=== PATIENT | male | born 1955 | race Caucasian/White ===

== ENCOUNTER 2017-11-18 08:27 | Day surgery (SDC) | payer BC ==
[2017-11-18 09:30] VITALS: BMI 26.1
[2017-11-18] MEDS ORDERED: PROPOFOL 20 ML ONE ×3 (10:07)
[2017-11-18 11:07] VITALS: TEMP 98.1
[2017-11-18 12:05] VITALS: BP 121/80; PULSE 63
--- NOTE | 2017-11-19 18:33 | PATH ---
Surgical Pathology Report Patient Name: YON MEJÍA [facility]. Rec. #: [id number] /Age/Gender: 1955 (Age: 62) / M Account: [id number] Location: ASU-ENDOSCOPY Taken: 11/18/2017 Received: 11/18/2017 Reported: 11/19/2017 Physicians: Julian Tuttle D.O. Specimen(s) Received BX CECAL POLYP Clinical History Benign neoplasm of colon, abnormal liver function test Postoperative diagnosis: Colon polyp Final Diagnosis CECUM, POLYP, POLYPECTOMY: TUBULAR ADENOMA WITH CAUTERY ARTIFACT. Electronically Signed Maegan Jules M.D. Gross Description Received in formalin, labeled "polyp from cecum" are 4 alvarado, irregular portions of soft tissue ranging from 0.1-0.5 cm. in greatest dimension. The specimens are submitted in toto in one cassette. /11/18/2017 saudi/11/18/2017
== END 2017-11-18 11:45 | disposition home or self-care (01) ==
LOC: JASU-ENDO 08:27
PROVIDERS: ATTEND Internal Medicine Gastroenterology
PROC: 0DBH8ZX Excision of Cecum, Via Natural or Artificial Opening Endoscopic, Diagnostic (ICD-10-PCS; principal; 2017-11-18 09:30)
DX: Z12.11 Encounter for screening for malignant neoplasm of colon (principal); Z86.010 Personal history of colon polyps; D12.0 Benign neoplasm of cecum
CPT/HCPCS: 88305-TC

== ENCOUNTER 2018-01-08 18:44 | Emergency (ER) | payer BC ==
[2018-01-08 18:53] VITALS: BP 139/81; PULSE 67; TEMP 99.1; BMI 29.0
--- NOTE | 2018-01-08 18:55 | PDOC ---
Rapid Medical Evaluation Chief Complaint: Back Pain Time Seen by Provider: 01/08/18 18:52 Medical Evaluation: Allergies Allergy/AdvReac Type Severity Reaction Status Date / Time No Known Allergies Allergy Verified 01/08/18 18:50 01/08/18 18:52 Pt presents for low back pain starting today. Pt states he lifted heavy boxes of water yesterday. Denies saddle anesthesia, weakness, bladder/bowel incontinence. Pt has hx of kidney stones Exam: Normal gait, No CVA tenderness, VSS Orders: Nothing. Pt to proceed to the ED for further evaluation Discharge Disposition - Diagnosis Back pain Qualifiers: Back pain location: low back pain - Referrals - Patient Instructions - Post Discharge Activity
--- NOTE | 2018-01-08 19:39 | PDOC ---
History of Present Illness - General Chief Complaint: Back Pain Stated Complaint: BACK PAIN Time Seen by Provider: 01/08/18 18:52 History Source: Patient Exam Limitations: No Limitations - History of Present Illness Initial Comments: CHIEF COMPLAINT: 62 y/o male c/o left sided low back pain since lifting something heavy yesterday. HISTORY OF PRESENT ILLNESS: The patient denies fall, trauma to back, midline back tenderness, urinary/bowel incontinence, leg pain, saddle anesthesia, numbness/tingling in feet. Vital signs on arrival are within normal limits. REVIEW OF SYSTEMS: GENERAL/CONSTITUTIONAL: No fever/chills. No weakness. No weight change. GENITOURINARY: No dysuria, frequency, or change in urination. No bowel/bladder incontinence. MUSCULOSKELETAL: No joint or muscle swelling or pain. No neck pain. +low back pain SKIN: No rash or easy bruising. NEUROLOGIC: No headache, vertigo, loss of consciousness, or loss of sensation. PHYSICAL EXAM: GENERAL: The patient is awake, alert, and fully oriented, in no acute distress. ABDOMEN: Soft, non-distended, non-tender even to deep palpation, no hepatomegaly or splenomegaly, no masses. BACK: No midline lumbar spine TTP or step offs. Full flexion and extension of lumbar spine. TTP with large knot of left lumbar paravertebral muscles. EXTREMITIES: Normal range of motion, no edema. NEUROLOGICAL: Normal speech, normal gait. CN II-XII grossly intact. No saddle anesthesia. SKIN: Warm, dry, normal turgor, no rashes or lesions noted. Past History - Past Medical History Allergies/Adverse Reactions: Allergies Allergy/AdvReac Type Severity Reaction Status Date / Time No Known Allergies Allergy Verified 01/08/18 18:50 Home Medications: Ambulatory Orders Metoprolol Tartrate [Lopressor -] 25 mg PO BID 10/01/13 Simvastatin [Zocor -] 40 mg PO HS 10/01/13 Cyclobenzaprine HCl [Flexeril 10 mg] 10 mg PO BID PRN #10 tablet MDD 2 01/08/18 Ibuprofen 600 mg PO TID #20 tablet 01/08/18 COPD: No HTN: Yes Hypercholesterolemia: Yes - Surgical History Orthopedic Surgery: Yes (left index sx) - Immunization History Immunization Up to Date: Yes - Suicide/Smoking/Psychosocial Hx Smoking History: Never smoked Have you smoked in the past 12 months: No Hx Alcohol Use: No Drug/Substance Use Hx: No Substance Use Type: Alcohol *Physical Exam - Vital Signs Last Vital Signs Temp Pulse Resp BP Pulse Ox 99.1 F 67 18 139/81 98 01/08/18 18:50 01/08/18 18:50 01/08/18 18:50 01/08/18 18:50 01/08/18 18:50 Medical Decision Making - Medical Decision Making A/P: 62 y/o male with low back strain. Will send rx for flexeril and ibuprofen. INstructed him flexeril may cause drowsiness. Suggested heating pad and massage. Gave work note for tomorrow. Suggested no heavy lifting. Instructed him to return to the ER with any worsening or concerning symptoms. The patient verbalizes understanding of all instructions, has no further questions and is awaiting discharge. *DC/Admit/Observation/Transfer Diagnosis at time of Disposition: Low back strain Back pain Qualifiers: Back pain location: low back pain Chronicity: acute Back pain laterality: left Sciatica presence: without sciatica Qualified Code(s): M54.5 - Low back pain - Discharge Dispostion Disposition: HOME Condition at time of disposition: Good - Prescriptions Prescriptions: Cyclobenzaprine HCl [Flexeril 10 mg] 10 mg PO BID PRN #10 tablet MDD 2 PRN Reason: Muscle Spasms Ibuprofen 600 mg PO TID #20 tablet - Referrals Referrals: Jacky Nolasco MD [Primary Care Provider] - Call tomorrow - Patient Instructions Printed Discharge Instructions: DI for Low Back Pain Additional Instructions: Discharge Instructions: -2 prescriptions have been sent to your pharmacy -Avoid heavy lifting -Apply heating pad to affected area -Massage affected area -Return to the ER with any worsening or concerning symptoms Instrucciones de descarga: -2 recetas penn sido enviadas a luna farmacia -Evitar levantar objetos pesados -Aplicar la almohadilla trmica al anand afectada -Masa afectada por el anand -Volver a la niko de urgencias con cualquier empeoramiento o sntomas Print Language: KINYARWANDA - Post Discharge Activity
== END 2018-01-08 19:44 | disposition home or self-care (01) ==
LOC: JERFT 18:44
DX: S39.012A Strain of muscle, fascia and tendon of lower back, initial encounter (principal); X50.0XXA Overexertion from strenuous movement or load, initial encounter; Y93.89 Activity, other specified; Y92.89 Other specified places as the place of occurrence of the external cause; Y99.8 Other external cause status; I10 Essential (primary) hypertension; E78.00 Pure hypercholesterolemia, unspecified
CPT/HCPCS: 99281-25

== ENCOUNTER 2019-07-06 12:51 | Emergency (ER) | payer BC ==
--- NOTE | 2019-07-06 13:04 | PDOC ---
Rapid Medical Evaluation Time Seen by Provider: 07/06/19 12:59 Medical Evaluation: Allergies Allergy/AdvReac Type Severity Reaction Status Date / Time No Known Allergies Allergy Verified 01/08/18 18:50 07/06/19 12:59 I have performed a brief in-person evaluation of this patient. The patient presents with a chief complaint of: woke up this morning feeling like he is favoring his left side. Started at about 6am. He is having trouble closing his left eye. No speech difficulties, no ataxia, no numbness or tingling. H/o HTN, HLD Pertinent physical exam findings: left sided facial droop, unable to close left eye I have ordered the following: code griffin, labs ordered, ct ordered The patient will proceed to the ED for further evaluation 07/06/19 13:02 Discharge Disposition - Diagnosis Facial droop - Referrals - Patient Instructions - Post Discharge Activity
[2019-07-06 13:05] VITALS: TEMP 98.2
[2019-07-06] MEDS ORDERED: SODIUM CHLORIDE 1,000 ML IV SCH (13:15)
--- NOTE | 2019-07-06 14:06 | PDOC ---
History of Present Illness - General Chief Complaint: CVA/TIA Stated Complaint: FACE NUMBNESS Time Seen by Provider: 07/06/19 12:59 History Source: Patient Exam Limitations: No Limitations - History of Present Illness Initial Comments: 07/06/19 14:03 Trevon Maddox is a 63M with PMH HTN and HLD presents with new onset facial weakness. Last known normal at 12:30AM, went to bed then and woke up at 6:30AM and noticed left-sided weakness of his left eyelid and left mouth corner. Presented to ED for CVA eval. Denies recent illness, fever, chills, N/V, chest pain, SOB, abd pain, dizziness. No history of SC or CVA in the past, PMH HTN and HLD on medications. Able to stand and walk without issues. Past History - Past Medical History Allergies/Adverse Reactions: Allergies Allergy/AdvReac Type Severity Reaction Status Date / Time No Known Allergies Allergy Verified 07/06/19 13:05 Home Medications: Ambulatory Orders Metoprolol Tartrate [Lopressor -] 25 mg PO BID 10/01/13 Simvastatin [Zocor -] 40 mg PO HS 10/01/13 Cyclobenzaprine HCl [Flexeril 10 mg] 10 mg PO BID PRN #10 tablet MDD 2 01/08/18 Ibuprofen 600 mg PO TID #20 tablet 01/08/18 Eye Patch 1 each MC DAILY #1 each 07/06/19 Valacyclovir HCl [Valtrex -] 1,000 mg PO TID 7 Days #21 tablet 07/06/19 predniSONE [Deltasone -] 60 mg PO DAILY 7 Days #21 tablet 07/06/19 COPD: No HTN: Yes Hypercholesterolemia: Yes - Surgical History Orthopedic Surgery: Yes (left index sx) - Immunization History Immunization Up to Date: Yes - Psycho Social/Smoking Cessation Hx Smoking History: Never smoked Have you smoked in the past 12 months: No Information on smoking cessation initiated: No Hx Alcohol Use: No Drug/Substance Use Hx: No Substance Use Type: Alcohol Review of Systems - Review of Systems Able to Perform ROS?: Yes Constitutional: No: Fever HEENTM: No: Blurred Vision, Double Vision, Hearing Loss, Throat Swelling, Difficulty Swallowing Respiratory: No: Cough, Shortness of Breath, SOB with Exertion, SOB at Rest Cardiac (ROS): No: Chest Pain, Edema, Irregular Heart Rate, Lightheadedness, Palpitations ABD/GI: No: Constipated, Diarrhea, Nausea, Poor Appetite, Poor Fluid Intake, Vomiting : No: Burning, Dysuria, Discharge, Frequency, Flank Pain, Hematuria, Incontinence Musculoskeletal: No: Symptoms Reported Integumentary: No: Symptoms Reported Neurological: Yes: Weakness (facial weakness). No: Headache, Numbness, Paresthesia, Unsteady Gait, Dizziness Endocrine: No: Symptoms Reported Hematologic/Lymphatic: No: Symptoms Reported All Other Systems: Reviewed and Negative *Physical Exam - Vital Signs Last Vital Signs Temp Pulse Resp BP Pulse Ox 98.2 F 75 18 174/94 H 100 07/06/19 13:03 07/06/19 13:03 07/06/19 13:03 07/06/19 13:03 07/06/19 13:03 - Physical Exam General Appearance: Yes: Nourished, Appropriately Dressed. No: Apparent Distress HEENT: positive: EOMI, MARYAM, Normal Voice, Pharynx Normal, Hearing Grossly Normal. negative: Normal ENT Inspection, Symmetrical, Photophobia, Scleral Icterus (R), Scleral Icterus (L), Pharyngeal Erythema, Tonsillar Exudate, Tonsillar Erythema Neck: positive: Trachea midline, Normal Thyroid, Supple. negative: Tender, Decreased range of motion, Lymphadenopathy (R), Lymphadenopathy (L), Tender lateral, Tender midline Respiratory/Chest: positive: Lungs Clear, Normal Breath Sounds. negative: Chest Tender, Respiratory Distress, Accessory Muscle Use, Crackles, Rales, Rhonchi, Stridor, Wheezing Cardiovascular: positive: Regular Rhythm, Regular Rate. negative: Murmur Gastrointestinal/Abdominal: positive: Normal Bowel Sounds, Flat, Soft. negative: Tender, Organomegaly, Protuberent, Guarding, Rebound, Hernia Musculoskeletal: positive: Normal Inspection. negative: CVA Tenderness, Decre ased Range of Motion, Vertebral Tenderness Extremity: positive: Normal Capillary Refill, Normal Inspection, Normal Range of Motion, Pelvis Stable, Other (no sensory deficits to arms/legs comapred L/R, no weakness or drift to arms/legs). negative: Tender, Pedal Edema, Swelling, Calf Tenderness Integumentary: positive: Normal Color, Dry, Warm Neurologic: positive: Fully Oriented, Alert, Normal Mood/Affect, Normal Response, Motor Strength 5/5, Finger to Nose (WNL), Other (A/O to self/place/time/month/birthday/age, no aphasia noted, no apraxia, speaking full sentences spontaneouly without pauses, normal thought content, no confusion). negative: vice president of engineering II-XII NML intact (Left face CN7 weakness decreased left eyelid strength and flattened left nasolabial fold angle but no sensory deficits compared to R side, remaining CN exam normal), Sensory Deficit NIH Stroke Scale - Initial Evaluation Level of consciousness: Alert Ask patient the month and their age: Answers both correctly Ask patient to open & close eyes; make fist and let go: Obeys both correctly Best gaze (horizontal eye movement): Normal Visual field testing: No visual field loss Facial paresis (Show teeth/raise eyebrows/close eyes tight): Minor paralysis (flattened nasolabial fold, asymmetry on smiling) Motor Function: Left Arm: Normal Motor Function: Right Arm: Normal (extends arm 90 (or 45) degrees for 10 seconds without drift Motor Function: Left Leg: Normal (extends leg 30 degrees for 5 seconds without drift) Motor Function: Right Leg: Normal (extends leg 30 degrees for 5 seconds without drift) Limb Ataxia: No ataxia Sensory(Use pinprick test arms,legs,trunk,face/side to side): Normal Best language (Describe picture, name items, read sentences): No Aphasia Dysarthria (read several words): Normal articulation Extinction and Inattention: No abnormality - Total Score NIH Stroke Scale Score: 1 tPA Exclusion Checklist 0-3hr - Thrombolytic Therapy Candidate Is the patient eligible for Thrombolytic Therapy?: No - Ineligibility reason(s) Reasons No tPA given: Outside of window - delayed arrival Critical Care Time/[facility] Note - Medical Decision Making Note: 07/06/19 14:24 Patient presents with left-sided facial weakness with decreased CN7 ability to close left eyelid, decreased forehead wrinkling to left forehead, left nasolabial fold flattening without any arm or leg symptoms, aphasia, cognitive deficits, numbness. Considering left-sided CVA vs. early onset Childers's palsy. CT scan shows no obvious lesion or ICH. CVA labs drawn. ECG shows NSR with HR 66, QRS 74, Qtc 414 Dr. Phillips consulted, recommends MRI DWI by rapid CVA protocol. 07/06/19 15:11 Labs notable for: - CBC WNL - CMP WNL - Tri/Chol/LDL elevated consistent with hyperlipidemia MRI checklist completed for patient, no risk factors or metal identified, pending MRI at this time. 07/06/19 16:04 MRI shows no evidence of infarct. Called Dr. Phillips, presumptive Childers's Palsy, safe for discharge home with outpatient neurology f/u, would like valacyclovir/prednisone outpatient with eye patch. Stable for discharge home at this time. Discharge - Discharge Information Problems reviewed: Yes Clinical Impression/Diagnosis: Facial droop, Childers's palsy Condition: Good Disposition: HOME - Admission No - Additional Discharge Information Prescriptions: predniSONE [Deltasone -] 60 mg PO DAILY 7 Days #21 tablet Eye Patch 1 each MC DAILY #1 each Valacyclovir HCl [Valtrex -] 1,000 mg PO TID 7 Days #21 tablet - Follow up/Referral Referrals: oDnte Phillips MD [Staff Physician] - - Patient Discharge Instructions Patient Printed Discharge Instructions: DI for Childers's Palsy Additional Instructions: Александрy fuiste evaluado por debilidad en tu shiv. Hemos recibido sadie tomografa computarizada y sadie resonancia magntica de luna breana y no hay accidente cerebrovascular. Es probable que edwige sntomas estn causados ??por sadie infeccin viral llamada Parlisis de Childers que se trata con esteroides y medicamentos antivirus, tmelos roby la prxima semana y consulte a un neurlogo en los prximos 3 astudillo; Se penn dado varias referencias. [place] los medicamentos y use el parche en el luz que le hemos dado. Si experimenta un empeoramiento de la debilidad facial, no puede usar los brazos o las piernas, tiene cambios en la visin o dolor de breana, no puede hablar o tiene otros sntomas nuevos o preocupantes, regrese a la niko de emergencias. Today you were evaluated for weakness in your face. We have gotten a CT scan and MRI of your head and there is no stroke. Your symptoms are likely being caused by a virus infection called Childers's Palsy which is treated with steroids and anti-virus medicines, please take them for the next week and see a neurologist in the next 3 days; several referrals have been given. Please take the medicines and wear the eye patch over your left eye at all times until you see a neurologist. If you experience worsening facial weakness, become unable to use your arms or legs, have vision changes or headache, become unable to speak, or have any other new or concerning symptoms, please return to the emergency room. Print Language: BULGARIAN - Post Discharge Activity Work/Back to School Note: Back to Work
[2019-07-06 14:08] LABS: INR 0.94 (0.83-1.09); PROTHROMBIN TIME (PATIENT) 11.1 SEC (9.7-13.0)
[2019-07-06 14:11] LABS: ACTIVATED PTT 23.5 SECONDS (25.2-36.5)
[2019-07-06 14:34] LABS: CHOLESTEROL 221 mg/dL (50-200); HDL CHOLESTEROL 53 mg/dL (40-60); LDL CHOLESTEROL (ONLY SJRH) 142 mg/dL (5-100); TRIGLYCERIDES 200 mg/dL (0-150)
[2019-07-06 14:47] LABS: ALK PHOS 90 U/L (45-117); ANION GAP 6 MMOL/L (8-16); BILIRUBIN,TOTAL 0.5 mg/dL (0.2-1); BLOOD UREA NITROGEN 12.2 mg/dL (7-18); CALCIUM 8.7 mg/dL (8.5-10.1); CHLORIDE 101 mmol/L (98-107); CO2 30 mmol/L (21-32); CREATININE 0.9 mg/dL (0.55-1.3); GLUCOSE,RANDOM 88 mg/dL (74-106); POTASSIUM 3.9 mmol/L (3.5-5.1); SGOT/AST 23 U/L (15-37); SGPT/ALT 20 U/L (13-61); SODIUM 137 mmol/L (136-145); TOT PROT 8.1 g/dl (6.4-8.2)
[2019-07-06 14:49] LABS: BASO % 0.5 % (0-2.0); EOS % 0.9 % (0-4.5); HEMATOCRIT 42.8 % (35.4-49); HEMOGLOBIN 14.1 GM/dL (11.7-16.9); LYMPH % 30.4 % (8-40); MCH 28.2 pg (25.7-33.7); MCHC 32.9 g/dl (32.0-35.9); MEAN CELL VOLUME 85.9 fl (80-96); MEAN PLT VOLUME 8.7 fl (7.5-11.1); NEUT % 57.2 % (42.8-82.8); PLATELET COUNT 150 K/MM3 (134-434); RBC 4.98 M/mm3 (4.00-5.60); RDW 14.7 % (11.9-15.9); WHITE BLOOD COUNT 5.8 K/mm3 (4.0-10.0)
--- NOTE | 2019-07-06 15:02 | PDOC ---
Documentation entered by Inna Nguyen SCRIBE, acting as scribe for Jose Cruz Mae MD. Jose Cruz Mae MD: This documentation has been prepared by the Adithya fernandez Nirvannie, SCRIBE, under my direction and personally reviewed by me in its entirety. I confirm that the documentation accurately reflects all work, treatment, procedures, and medical decision making performed by me. Attending Attestation - Resident Resident Name: Kang Douglas - ED Attending Attestation I have performed the following: I have examined & evaluated the patient, The case was reviewed & discussed with the resident, I agree w/resident's findings & plan - HPI HPI: 07/06/19 14:13 The patient is a 63 year old male, with a significant past medical history of hypertension and hyperlipidemia, who presents to the emergency department with left facial weakness. Patient woke up at 6:30am with left eyelid and left corner of the mouth weakness. He denies any recent chest pain or shortness of breath. no headace/vision change/speech change/focal arm or leg weakness/difficulty ambulating. No ear pain/ringing, no recent travel. Allergies: NKDA Last Known Well: 12:30AM - Physicial Exam PE: 07/06/19 15:00 Slightly elevated blood pressure, vitals otherwise normal Well-appearing gentleman seated comfortably in stretcher speaking fluent sentences Pupils equal round reactive to light, extraocular movements are intact Heart is regular, lungs are clear, abdomen benign There is some asymmetry with weakness of left forehead wrinkling, left eye closure, and left nasolabial fold/smile. 5 out of 5 upper and lower extremity strength, no pronator drift, gait stable - Medical Decision Making 07/06/19 15:01 63-year-old male last known well about 12 hours prior to arrival with symptom onset noted around 6:30 AM presents with left facial weakness inclusive of upper face which seems more consistent with Childers's palsy than with central etiology. Given risk factors, will rule out TIA/CVA. No other focal findings on examination. Stroke protocol initiated CT head shows no acute infarction Discussed with neurology, will perform MRI to rule out CVA Reassess and disposition accordingly Heart Score/ECG Review #1 ECG reviewed & interpreted by me at: 13:18 General ECG Interpretation: Sinus Rhythm, Normal Rate (66), Normal Intervals (qtc 398), No acute ischemic changes
[2019-07-06 15:23] VITALS: BP 140/85; PULSE 66
--- NOTE | 2019-07-07 11:14 | EKG ---
Test Reason : Blood Pressure : / mmHG Vent. Rate : 066 BPM Atrial Rate : 066 BPM P-R Int : 152 ms QRS Dur : 084 ms QT Int : 380 ms P-R-T Axes : 045 -01 040 degrees QTc Int : 398 ms NORMAL SINUS RHYTHM NORMAL ECG WHEN COMPARED WITH ECG OF 01-OCT-2013 17:45, NO SIGNIFICANT CHANGE WAS FOUND Confirmed by MD ARMIN, MANDI ([id number]) on 07/07/2019 11:14:02 AM Referred By: Confirmed By:MANDI FUNEZ MD
== END 2019-07-06 16:15 | disposition home or self-care (01) ==
LOC: JER 12:51
DX: G51.0 Bell's palsy (principal); I10 Essential (primary) hypertension; E78.5 Hyperlipidemia, unspecified
CPT/HCPCS: 36415; 70450-TC; 70551-TC; 80053; 80061; 82550; 83721; 84484; 85025; 85610; 85730; 86850; 86900; 86901; 93005; 93010; 99285-25; J7030

== ENCOUNTER 2022-02-04 03:59 | Day surgery (SDC) | payer OTHER, BC ==
[2022-02-01 09:07] VITALS: BMI 28.3
[2022-02-04] MEDS ORDERED: BUPIVACAINE HCL/PF 0.25% (2.5MG/ML) 10 ML VIAL ONE (07:37)
[2022-02-04] MEDS ORDERED: BUPIVACAINE HCL/PF 0.5% (5MG/ML) 10 ML VIAL ONE (07:38)
[2022-02-04] MEDS ORDERED: MIDAZOLAM HCL 2 MG/2 ML SINGLE DOSE VIAL ONE (07:54)
[2022-02-04] MEDS ORDERED: PROPOFOL 40 ML ONE (07:54)
[2022-02-04] MEDS ORDERED: SUCCINYLCHOLINE CHLORIDE 200 MG/10 ML SYRINGE ONE (07:55)
[2022-02-04] MEDS ORDERED: ROCURONIUM BROMIDE 50 MG/5 ML SYRINGE ONE (07:55)
[2022-02-04] MEDS ORDERED: ceFAZolin SODIUM 1 GM VIAL IVPB ONE (08:14)
[2022-02-04] MEDS ORDERED: HEPARIN NA (PORCINE) 5,000 UNITS/ML 1ML VIAL ONE (08:27)
[2022-02-04] MEDS ORDERED: HEPARIN NA (PORCINE) 5,000 UNITS/ML 1ML VIAL SQ ONE (08:28)
[2022-02-04] MEDS ORDERED: NEOSTIGMINE METHYLSULFATE 0.5 MG/ML - 10 ML MDV ONE (09:29)
[2022-02-04] MEDS ORDERED: SUGAMMADEX SODIUM 200 MG/2 ML VIAL ONE (09:41)
[2022-02-04] MEDS ORDERED: PROMETHAZINE HCL 25 MG/1 ML VIAL IVPUSH PRN (09:58)
[2022-02-04] MEDS ORDERED: ONDANSETRON 4 MG/2 ML VIAL IVPUSH PRN (09:58)
[2022-02-04] MEDS ORDERED: oxyCODONE HCL 5 MG TABLET PO PRN (09:58)
[2022-02-04] MEDS ORDERED: hydrALAZINE HCL 20 MG/ML VIAL IVPUSH ONE (09:59)
[2022-02-04] MEDS ORDERED: LACTATED RINGERS SOLUTION 1,000 ML IV SCH (10:00)
[2022-02-04 11:47] VITALS: RESP 18
[2022-02-04 14:34] VITALS: BP 128/89; PULSE 94; TEMP 98.4
== END 2022-02-04 14:05 | disposition home or self-care (01) ==
LOC: JASU-SURG 03:59
PROVIDERS: ATTEND Surgery
PROC: 0YU64JZ Supplement Left Inguinal Region with Synthetic Substitute, Percutaneous Endoscopic Approach (ICD-10-PCS; principal; 2022-02-04 08:00)
DX: K40.90 Unilateral inguinal hernia, without obstruction or gangrene, not specified as recurrent (principal)
CPT/HCPCS: 94760; J1644

== ENCOUNTER 2022-04-16 04:39 | Day surgery (SDC) | payer OTHER, BC ==
[2022-04-16 08:36] VITALS: BMI 25.7
[2022-04-16 09:50] VITALS: TEMP 98.2
[2022-04-16 10:16] VITALS: BP 112/75; PULSE 78; RESP 19
== END 2022-04-16 11:15 | disposition home or self-care (01) ==
LOC: JASU-ENDO 04:39
PROVIDERS: ATTEND Internal Medicine Gastroenterology
PROC: 0DBM8ZX Excision of Descending Colon, Via Natural or Artificial Opening Endoscopic, Diagnostic (ICD-10-PCS; 2022-04-16)
PROC: 0DBH8ZX Excision of Cecum, Via Natural or Artificial Opening Endoscopic, Diagnostic (ICD-10-PCS; principal; 2022-04-16 09:15)
DX: Z12.11 Encounter for screening for malignant neoplasm of colon (principal); Z86.010 Personal history of colon polyps; K63.5 Polyp of colon; K64.8 Other hemorrhoids
CPT/HCPCS: 88305-TC

== ENCOUNTER 2024-07-15 05:35 | Day surgery (SDC) | payer OTHER ==
[2024-07-12 11:57] VITALS: BMI 27.9
[2024-07-15] MEDS ORDERED: COCAINE HCL 4% TOPICAL SOLUTION 4 ML BOTTLE TP ONE (12:23)
[2024-07-15] MEDS ORDERED: PROPOFOL 20 ML ONE ×2 (12:46→13:38)
[2024-07-15] MEDS ORDERED: SUCCINYLCHOLINE CHLORIDE 200 MG/10 ML SYRINGE ONE (12:46)
[2024-07-15] MEDS ORDERED: MIDAZOLAM HCL 2 MG/2 ML SINGLE DOSE VIAL ONE (12:46)
[2024-07-15] MEDS ORDERED: ROCURONIUM BROMIDE 50 MG/5 ML SYRINGE ONE (12:46)
[2024-07-15] MEDS: ceFAZolin SODIUM 1 GM VIAL IVPB ONE (13:08)
[2024-07-15] MEDS: OXYMETAZOLINE 0.05% NASAL SOLUTION 15 ML BOTTLE NS ONE (13:16)
[2024-07-15] MEDS ORDERED: SUGAMMADEX SODIUM 200 MG/2 ML VIAL ONE (14:16)
[2024-07-15] MEDS: ACETAMINOPHEN 1000 MG/100 ML BAG IVPB PRN (14:57)
[2024-07-15] MEDS ORDERED: ACETAMINOPHEN INJECTION 100 ML ONE (14:57)
[2024-07-15] MEDS: LACTATED RINGERS SOLUTION 1,000 ML IV SCH (14:58)
[2024-07-15 16:23] VITALS: RESP 18
[2024-07-15 17:48] VITALS: BP 145/81; PULSE 67; TEMP 97.6
== END 2024-07-15 17:40 | disposition home or self-care (01) ==
LOC: JASU-SURG 05:35
PROVIDERS: ATTEND Otolaryngology
PROC: 09TU8ZZ Resection of Right Ethmoid Sinus, Via Natural or Artificial Opening Endoscopic (ICD-10-PCS; 2024-07-15)
PROC: 8E09XBZ Computer Assisted Procedure of Head and Neck Region (ICD-10-PCS; 2024-07-15)
PROC: 09TV8ZZ Resection of Left Ethmoid Sinus, Via Natural or Artificial Opening Endoscopic (ICD-10-PCS; principal; 2024-07-15 12:30)
DX: J32.2 Chronic ethmoidal sinusitis (principal); J32.0 Chronic maxillary sinusitis; J32.1 Chronic frontal sinusitis; B96.89 Other specified bacterial agents as the cause of diseases classified elsewhere; J34.3 Hypertrophy of nasal turbinates; J34.2 Deviated nasal septum
CPT/HCPCS: 87070; 87186; 87205; 88304-TC; 94760; J0131

== ENCOUNTER 2024-10-23 09:43 | Emergency (ER) | payer OTHER ==
[2024-10-23 09:49] VITALS: BP 158/86; PULSE 81; RESP 18; TEMP 98.4; BMI 27.4
== END 2024-10-23 10:54 | disposition home or self-care (01) ==
LOC: JERFT 09:43 → JER 09:43 → JERFT 10:54
PROC: 09C3XZZ Extirpation of Matter from Right External Auditory Canal, External Approach (ICD-10-PCS; principal; 2024-10-23)
DX: T16.1XXA Foreign body in right ear, initial encounter (principal)
CPT/HCPCS: 69200; 99283-25